=== PATIENT | male | born 1985 | race Hispanic/Latino ===

== ENCOUNTER 2017-06-11 21:16 | Emergency (ER) | payer SELFPAY ==
[~2017-06-11 21:16] MED LIST: ISOVUE-370 76%-LOCM 1 ML ONE
[2017-06-11 21:34] LABS: Bilirubin Negative (Negative); Blood, Urine Negative (Negative); Glucose, Urine (Dipstick) Negative (Negative); Ketone, Urine Negative (Negative); Nitrite Negative (Negative); Protein, Urine (Dipstick) Negative (Neg-Trace); Urobilinogen 0.2 mg/dL (0.2-1.0)
[2017-06-11 21:52] LABS: #Eosinphils 0.1 thou/uL (0.0-0.7); #Lymphocytes 1.7 thou/uL (1.20-3.40); #Monocytes 0.7 thou/uL (0.11-0.59); #Neutrophils 4.9 thou/uL (1.40-6.50); %Basophils 0.4 % (0.0-1.0); %Eosinophils 1.2 % (0.0-10.0); %Monocytes 9.7 % (0.0-10.0); Hematocrit 51.2 % (42.0-52.0); Mean Platelet Volume 7.8 fL (7.4-10.4); Red Blood Cell (RBC) Count 5.69 mill/uL (4.70-6.10); White Blood Cell (WBC) Count 7.4 thou/uL (4.8-10.8)
[2017-06-11 22:18] LABS: ALT (SGPT) 44 U/L (8-55); AST (SGOT) 28 U/L (5-34); Alkaline Phosphatase 75 U/L (40-150); Anion Gap 15 mmol/L (10-20); BUN (Urea Nitrogen) 16 mg/dL (8.9-20.6); Bilirubin, Total 0.5 mg/dL (0.2-1.2); Calc. Creatinine Clearance 0 mL/min (70-130); Calcium 9.4 mg/dL (7.8-10.44); Carbon Dioxide 23 mmol/L (22-29); Chloride 102 mmol/L (98-107); Estimated GFR-MDRD 90; Globulin 3.4 g/dL (2.4-3.5); Protein, Total 7.7 g/dL (6.0-8.3)
--- NOTE | 2017-06-11 22:53 | CT ---
CT ABDOMEN AND PELVIS WITH IV CONTRAST: 06/11/17 HISTORY: 31-year-old male with right lower quadrant abdominal pain and decreased appetite. Nausea and vomitin g. FINDINGS: The lung bases are unremarkable. There is decreased attenuation of the liver compared to the spleen consistent with fatty infiltration. The spleen, pancreas, adrenal glands and kidneys are normal. No calcified gallstones are seen. No free air, free fluid or lymphadenopathy is noted in the abdomen or pelvis. The small bowel loops are not abnormally dilated. There is no evidence of an abnormally dilated fluid filled appendix. No pericolonic inflammatory changes are seen. There is a fat containing umbilical hernia. There are ch ronic bilateral pars defects at L5. IMPRESSION: 1. No definite evidence of appendicitis. 2. Fatty liver. 3. Fat containing umbilical hernia. 4. Chronic pars defects at L5 level. POS: [facility]
[2017-06-11] MEDS ORDERED: Ketorolac Tromethamine 30 MG/ML VIAL ONE (23:20)
== END 2017-06-11 23:55 | disposition home or self-care (01) ==
LOC: ERS 21:16
DX: K42.9 Umbilical hernia without obstruction or gangrene (principal)
CPT/HCPCS: 36415; 74177; 80053; 81003; 82150; 85025; 96361; 96374; 96375; J1885; J2270

== ENCOUNTER 2018-06-23 09:24 | Emergency (ER) | payer SELFPAY ==
[2018-06-23 10:08] LABS: Bilirubin Negative (Negative); Blood, Urine Negative (Negative); Clarity CLEAR (Clear); Glucose, Urine (Dipstick) Negative (Negative); Leukocyte Negative (Negative); Nitrite Negative (Negative); Protein, Urine (Dipstick) Negative (Neg-Trace); Specific Gravity, Urine 1.018 (1.002-1.036); Urobilinogen 0.2 mg/dL (0.2-1.0); pH, Urine 5.5 (5.0-9.0)
[2018-06-23] MEDS ORDERED: Ibuprofen 800 MG TAB ONE (12:18)
== END 2018-06-23 12:37 | disposition home or self-care (01) ==
LOC: ERS 09:24
DX: K42.9 Umbilical hernia without obstruction or gangrene (principal)
CPT/HCPCS: 81003; 99284